=== PATIENT | female | born 1990 | race Caucasian/White ===

== ENCOUNTER 2018-01-04 19:18 | Emergency (ER) | payer OTHER ==
[2018-01-04 19:25] VITALS: BP 116/58; BMI 38.3
[2018-01-04 20:22] LABS: BASOPHILS # (AUTO) 0.1 X10^3/uL (0.0-0.1); BASOPHILS % (AUTO) 0.6 % (0.2-1.0); EOSINOPHILS # (AUTO) 0.1 x10^3/uL (0.0-0.2); EOSINOPHILS % (AUTO) 0.8 % (0.9-2.9); HEMATOCRIT 40.4 % (36.0-47.0); HEMOGLOBIN 13.9 g/dL (12.0-16.0); LYMPHOCYTES # (AUTO) 2.4 X10^3/uL (1.3-2.9); LYMPHOCYTES % (AUTO) 18.6 % (21.0-51.0); MEAN CORPUSCULAR HEMOGLOBIN 31.5 pg (27.0-34.0); MEAN CORPUSCULAR HGB CONC 34.3 g/dL (33.0-35.0); MEAN CORPUSCULAR VOLUME 91.6 fL (80.0-100.0); MEAN PLATELET VOLUME 11.3 fL (7.4-11.0); MONOCYTES # (AUTO) 0.7 x10^3/uL (0.3-0.8); MONOCYTES % (AUTO) 5.5 % (0.0-13.0); NEUTROPHILS # (AUTO) 9.6 x10^3/uL (2.2-4.8); NEUTROPHILS % (AUTO) 74.5 % (42.0-75.0); PLATELET COUNT 200 X10^3/uL (150.0-450.0); RED BLOOD COUNT 4.41 X10^6/uL (3.5-5.4); RED CELL DISTRIBUTION WIDTH 13.1 % (11.6-16.5)
--- NOTE | 2018-01-04 20:24 | DR.GENAD ---
HPI - PCP Primary Care Physician: TARIQ - Complaint/Symptoms Chief Complaint Doctors Comments: History as stated. She presents with complaint of nausea and vomiting. She states that the zofran is not working. This is her 2nd . She is alert in no distress, vital signs are stable. Chief Complaint:: "I HAVE BEEN SICK FOR THE LAST 3 WEEKS, N/V, NAUSEA ALL DAY AND VOMITING AT NIGHT. GAVE ME ZOFRAN BUT ITS REALLY NOT HELPING. I THINK I AM DEHYDRATED.". PATIENT DENIES ANY PAIN, DENIES ANY VAGINAL BLEEDING , VAGINAL DISCHARGE OR LEAK OF FLUIDS. - Source History Provided: Patient - Mode of Arrival Mode of Arrival: Ambulatory - Timing Onset of Chief Complaint: 12/21/17 PMH - PMH Past Medical History: No Past Surgical History: Yes Surgical History: - Family History History of Family Medical Conditions: No - Social History Does patient currently use any type of tobacco product: No Have you used tobacco products in the last 12 months: No Type of Tobacco Use: None Does any household member use tobacco: No Alcohol Use: None Do you use any recreational Drugs:: No Lives With: Spouse Lives Where: Home - infectious screening In the last 2 months have you had wt loss of >10#?: NO Have you had fever, night sweats or hemotysis?: No Have you traveled outside the country in the last 6 months?: No Isolation: Standard ROS - Review of Systems Eyes: No Symptoms Reported ENTM: No Symptoms Reported Respiratoy: No Symptoms Reported Cardiovascular: No Symptoms Reported Gastrointestinal/Abdominal: No Symptoms Reported Genitourinary: No Symptoms Reported Neurological: No Symptoms Reported Musculoskeletal: No Symptoms Reported Integumentary: No Symptoms Reported Hematologic/Lymphatic: No Symptoms Reported Endocrine: No Symptoms Reported Psychiatric: No Symptoms Reported All Other Systems: Reviewed and Negative PE - Vital Signs Vitals: Temperature 98.7 F Pulse Rate 72 Respiratory Rate 16 Blood Pressure 116/58 O2 Sat by Pulse Oximetry 100 - General General Appearance: Alert, In No Apparent Distress - Head Head Exam: Normal Inspection, Atraumatic - Eyes Eye exam: Normal Appearance, PERRL, EOMI - ENT ENT Exam: Normal Exam External Ear Exam: Normal External Inspection TM/Canal Exam: Bilateral Normal Nose Exam: Normal Nose Exam Mouth Exam: Normal Inspection Throat Exam: Normal Inspection - Neck Neck Exam: Normal Inspection - Chest Chest Inspection: Normal Inspection - Respiratory Respiratory Exam: Normal Lung Sounds Bilat Respiratory Exam: Bilateral Clear to Auscultation - Cardiovascular Cardiovascular Exam: Regular Rate - Abdominal Exam Abdominal Exam: Normal Inspection, Normal Bowel Sounds Abdominal Tenderness: negative: RUQ, RLQ, LUQ, LLQ, Epigastrium, Suprapubic, Diffuse, Mild, Moderate, Severe, Other - Extremities Extremities Exam: Normal Inspection - Back Back Exam: Normal Inspection - Neurologic Neurological Exam: CN II-XII Intact - Psychiatric Psychiatric Exam: Normal Affect ROR - Labs Reviewed Result Diagrams: 01/04/18 20:15 01/04/18 20:15 Laboratory: WBC 13.0 X10^3/uL (3.6-10.0) H 01/04/18 20:15 RBC 4.41 X10^6/uL (3.5-5.4) 01/04/18 20:15 Hgb 13.9 g/dL (12.0-16.0) 01/04/18 20:15 Hct 40.4 % (36.0-47.0) 01/04/18 20:15 MCV 91.6 fL (80.0-100.0) 01/04/18 20:15 MCH 31.5 pg (27.0-34.0) 01/04/18 20:15 MCHC 34.3 g/dL (33.0-35.0) 01/04/18 20:15 RDW 13.1 % (11.6-16.5) 01/04/18 20:15 Plt Count 200 X10^3/uL (150.0-450.0) 01/04/18 20:15 MPV 11.3 fL (7.4-11.0) H 01/04/18 20:15 Neut % 74.5 % (42.0-75.0) 01/04/18 20:15 Lymph % 18.6 % (21.0-51.0) L 01/04/18 20:15 Maury % 5.5 % (0.0-13.0) 01/04/18 20:15 Eos % 0.8 % (0.9-2.9) L 01/04/18 20:15 Baso % 0.6 % (0.2-1.0) 01/04/18 20:15 Neut # 9.6 x10^3/uL (2.2-4.8) H 01/04/18 20:15 Lymph # 2.4 X10^3/uL (1.3-2.9) 01/04/18 20:15 Maury # 0.7 x10^3/uL (0.3-0.8) 01/04/18 20:15 Eos # 0.1 x10^3/uL (0.0-0.2) 01/04/18 20:15 Baso # 0.1 X10^3/uL (0.0-0.1) 01/04/18 20:15 Absolute Nucleated RBC 0.0 /100WBC 01/04/18 20:15 Sodium 136 mmol/L (136-145) 01/04/18 20:15 Corrected Sodium TNP 01/04/18 20:15 Potassium 3.9 mmol/L (3.5-5.1) 01/04/18 20:15 Chloride 101 mmol/L (98-107) 01/04/18 20:15 Carbon Dioxide 26.4 mmol/L (21-32) 01/04/18 20:15 BUN 10 mg/dL (7-18) 01/04/18 20:15 Creatinine 0.72 mg/dL (0.55-1.02) 01/04/18 20:15 Est GFR (MDRD) Af Amer > 60 (>60) 01/04/18 20:15 Est GFR (MDRD) Non-Af > 60 (>60) 01/04/18 20:15 Glucose 83 mg/dL (65-99) 01/04/18 20:15 Calcium 9.5 mg/dL (8.5-10.1) 01/04/18 20:15 Specimen Type Clean catch urine 01/04/18 19:57 Urine Color Yellow (YELLOW) 01/04/18 19:57 Urine Appearance Clear (CLEAR) 01/04/18 19:57 Urine pH 6.0 (5.0 - 8.0) 01/04/18 19:57 Ur Specific [place] 1.025 (1.000-1.030) 01/04/18 19:57 Urine Protein 1+ (NEGATIVE) 01/04/18 19:57 Urine Glucose (UA) Negative (NEGATIVE) 01/04/18 19:57 Urine Ketones Negative (NEGATIVE) 01/04/18 19:57 Urine Occult Blood 1+ (NEGATIVE) 01/04/18 19:57 Urine Nitrite Negative (NEGATIVE) 01/04/18 19:57 Urine Bilirubin Negative (NEGATIVE) 01/04/18 19:57 Urine Urobilinogen Normal (NORMAL) 01/04/18 19:57 Ur Leukocyte Esterase Negative (NEGATIVE) 01/04/18 19:57 Urine RBC Rare /HPF (NEGATIVE) 01/04/18 19:57 Urine WBC None seen /HPF (NEGATIVE) 01/04/18 19:57 Ur Squamous Epith Cells Moderate /HPF (NEGATIVE) 01/04/18 19:57 Urine Bacteria 1+ /HPF (NEGATIVE) 01/04/18 19:57 Urine Mucus Many /HPF (NEGATIVE) 01/04/18 19:57 Ur Culture Indicated? No/not indicated 01/04/18 19:57 - Diagnosis Discharge Problem: First trimester - Discharge Plan Condition: Stable - Follow ups/Referrals Follow ups/Referrals: ROMERO POTTER [Primary Care Provider] - 3 days - Instructions
[2018-01-04 20:28] LABS: BLOOD UREA NITROGEN 10 mg/dL (7-18); CALCIUM 9.5 mg/dL (8.5-10.1); CARBON DIOXIDE 26.4 mmol/L (21-32); CHLORIDE 101 mmol/L (98-107); CREATININE 0.72 mg/dL (0.55-1.02); SODIUM 136 mmol/L (136-145); eGFR BLACK RACES > 60 (>60); eGFR NON BLACK RACES > 60 (>60)
[2018-01-04 20:31] LABS: BILIRUBIN,URINE NEGATIVE (NEGATIVE); BLOOD/HEMOGLOBIN,URINE 1+ (NEGATIVE); GLUCOSE, URINE NEGATIVE (NEGATIVE); KETONES,URINE NEGATIVE (NEGATIVE); LEUKOCYTE ESTERASE ,URINE NEGATIVE (NEGATIVE); NITRITES,URINE NEGATIVE (NEGATIVE); PROTEIN,URINE 1+ (NEGATIVE); UROBILINOGEN,URINE NORMAL (NORMAL)
[2018-01-04 20:44] LABS: APPEARANCE,URINE CLEAR (CLEAR); BACTERIA,URINE 1+ /HPF (NEGATIVE); COLOR,URINE YELLOW (YELLOW); MUCUS,URINE MANY /HPF (NEGATIVE); RBC,URINE RARE /HPF (NEGATIVE); SQUAMOUS EPITHELIAL CELL,UR MODERATE /HPF (NEGATIVE)
== END 2018-01-04 21:12 | disposition home or self-care (01) ==
LOC: ER 19:30
DX: R11.2 Nausea with vomiting, unspecified (principal); Z3A.00 Weeks of gestation of pregnancy not specified
CPT/HCPCS: 36415; 80048; 81001; 85025; 99282